=== PATIENT | male | born 1950 | race Caucasian/White ===

== ENCOUNTER 2016-07-13 07:45 | Emergency (ER) | payer OTHER, MEDICARE ==
[~2016-07-13 07:45] MED LIST: FLOMAX 0.4 MG0.4 MG PO; LIPITOR TAB 2020 MG PO; METOPROLOL TART25 MG PO; PAXIL40 MG PO; SINEMET CR 50/201 EA PO
[2016-07-13 08:56] LABS: HEMOGLOBIN 14.9 gm/dl (14.0-17.5); RED BLOOD COUNT 4.53 M/UL (4.20-5.50); WHITE BLOOD COUNT 6.7 K/UL (4.5-11.0)
[2016-07-13 09:26] LABS: BUN/CREATININE RATIO 36 (0-10)
== END 2016-07-13 14:37 | disposition home or self-care (01) ==
LOC: ER1 07:45
PROVIDERS: Physician Assistant Medical
DX: R50.9 Fever, unspecified (principal); G20 Parkinson's disease; Z88.5 Allergy status to narcotic agent
CPT/HCPCS: 71010; 80053; 82150; 82550; 82553; 83605; 83690; 83874; 84484; 85025; 87081; 87880; 93005; 96360; 96361; 99284; J7040